=== PATIENT | female | born 1980 | race Caucasian/White ===

== ENCOUNTER 2016-10-16 12:22 | Emergency (ER) | payer MEDICAID ==
[~2016-10-16] VITALS: Ht 167.6 cm; Wt 70.3 kg
[2016-10-16 12:27] VITALS: BP 150/91
[2016-10-16 13:03] LABS: Basophils # (auto) 0 uL; Basophils % (auto) 0.3 % (0.0-2.0); CONDITION Y; Eosinophils # (auto) 0.2 uL; Hematocrit 42.4 % (36.0-46.0); Hemoglobin 14.6 g/dL (12.2-16.2); Lymphocytes # (auto) 2.1 uL; Lymphocytes % (auto) 23.3 % (10.0-50.0); Mean Corpuscular Hemoglobin 31.3 pg (28.0-32.0); Mean Corpuscular Hgb Conc. 34.5 g/dL (32.0-36.0); Mean Corpuscular Volume 90.7 fL (80.0-100.0); Mean Platelet Volume 8.1 fL (7.4-10.4); Monocytes # (auto) 0.7 uL; Monocytes % (auto) 7.4 % (0.0-12.0); Neutrophils # (auto) 6.2 uL; Platelet Count (auto) 248 10^3/uL (140-450); White Blood Cell 9.2 10^3/uL (4.4-10.8)
[2016-10-16 13:33] LABS: Bilirubin, Total 0.5 mg/dL (0.2-1.0); Potassium 3.8 mmol/L (3.5-5.1); Total Protein 7.6 g/dL (6.4-8.2)
[2016-10-16 13:50] LABS: INR 1.01 (0.9-1.15); Partial Thromboplastin Time 25.4 sec (22.64-33.71)
[2016-10-16 15:53] LABS: Temperature: 22.3 C (20.0-25.0)
== END 2016-10-16 14:10 | disposition left against medical advice (07) ==
LOC: ER 12:22
DX: M79.604 Pain in right leg (principal); Z53.21 Procedure and treatment not carried out due to patient leaving prior to being seen by health care provider
CPT/HCPCS: 36415; 80053; 83880; 85025; 85379; 85610; 85730; 93971

== ENCOUNTER 2020-12-28 16:11 | Emergency (ER) | payer MEDICAID, OTHER ==
[~2020-12-28] VITALS: Ht 167.6 cm; Wt 68.0 kg
[2020-12-28] MEDS ORDERED: ACETAMINOPHEN 500 MG TAB PO ONE ×2 (18:04→18:30)
[2020-12-28 18:47] VITALS: BP 127/82
== END 2020-12-28 18:48 | disposition home or self-care (01) ==
LOC: ER 16:11
DX: S43.102A Unspecified dislocation of left acromioclavicular joint, initial encounter (principal); V49.49XA Driver injured in collision with other motor vehicles in traffic accident, initial encounter; Y93.89 Activity, other specified; Y92.488 Other paved roadways as the place of occurrence of the external cause; Y99.8 Other external cause status
CPT/HCPCS: 71101; 73030